=== PATIENT | female | born 1975 | race Caucasian/White ===

== ENCOUNTER 2018-07-17 13:45 | Emergency (ER) | payer OTHER ==
[~2018-07-17] VITALS: Ht 180.3 cm; Wt 127.0 kg
[2018-07-17] MEDS ORDERED: PNEU16DI2 (16:02)
[2018-07-17] MEDS ORDERED: NP THYROID30 MG (16:02)
== END 2018-07-17 18:43 | disposition home or self-care (01) ==
LOC: ER 13:45
DX: M25.50 Pain in unspecified joint (principal); R51 Headache; M79.622 Pain in left upper arm; M79.621 Pain in right upper arm; R07.89 Other chest pain; M54.89 Other dorsalgia